=== PATIENT | female | born 1940 | race Caucasian/White ===

== ENCOUNTER → 2018-11-29 15:07 | Outpatient (ROUT) | payer MEDICARE, MEDICAID, SELFPAY ==
[2018-11-29 15:40] LABS: Hemoglobin A1C% w Est Avg Glu 5.2 % (4.0-6.0)
[2018-11-29 16:27] LABS: Vitamin B12 277 pg/mL (239-931)
== END ==
PROVIDERS: PCP Internal Medicine; Visit Provider Internal Medicine
DX: E53.8 Deficiency of other specified B group vitamins (principal); E11.9 Type 2 diabetes mellitus without complications
CPT/HCPCS: 82607; 83036

== ENCOUNTER → 2019-02-28 18:26 | Outpatient (ROUT) | payer MEDICARE, MEDICAID, SELFPAY ==
[2019-02-28 18:47] LABS: Alanine Aminotransferase 7 IU/L (<35); Albumin 3.6 g/dL (3.5-5.0); Albumin Globulin Ratio 1.6 (1.0-2.8); Alkaline Phosphatase 79 U/L (38-126); Aspartate Aminotransferase 15 IU/L (14-36); BUN Creatinine Ratio 21.7 (6-22); Bilirubin Total 0.4 mg/dL (0.2-1.3); Blood Urea Nitrogen 26 mg/dL (7-17); Calcium 9.1 mg/dL (8.4-10.2); Carbon Dioxide 20 mmol/L (22-32); Chloride 113 mmol/L (98-107); Cholesterol 114 mg/dL (140-199); Estimated Glomerular Filt Rate 43.6 mL/min (>60); Globulin 2.3 g/dL (1.7-4.1); Glucose 83 mg/dL (80-110); HDL Cholesterol 46 mg/dL (40-60); HEMOLYSIS < 15 (0-50); LDL Cholesterol Calculated 45 mg/dL (<100); Potassium 4.1 mmol/L (3.4-5.1); Sodium 143 mmol/L (137-145); Total Protein 5.9 g/dL (6.3-8.2); Triglycerides 113 mg/dL (35-150)
[2019-02-28 18:50] LABS: Hemoglobin A1C% w Est Avg Glu 4.7 % (4.0-6.0)
[2019-02-28 19:03] LABS: Vitamin D 25 Hydroxy (D3) 22.2 ng/mL (30.0-100.0)
[2019-02-28 19:36] LABS: Vitamin B12 > 1000 pg/mL (239-931)
== END ==
PROVIDERS: PCP Internal Medicine; Visit Provider Internal Medicine
DX: I10 Essential (primary) hypertension (principal); E55.9 Vitamin D deficiency, unspecified; E78.5 Hyperlipidemia, unspecified; E11.9 Type 2 diabetes mellitus without complications; E53.8 Deficiency of other specified B group vitamins
CPT/HCPCS: 80053; 80061; 82306; 82607; 83036

== ENCOUNTER → 2020-04-03 14:46 | Outpatient (ROUT) | payer MEDICARE, MEDICAID, SELFPAY ==
[2020-04-03 15:30] LABS: Add Manual Diff / Slide Review NO; Basophils Absolute Auto 100 /uL (0-100); Basophils Percent Auto 0.5 % (0-2); Eosinophils Absolute Auto 100 /uL (0-450); Eosinophils Percent Auto 0.6 % (2-4); Hematocrit 20.1 % (36-46); Lymphocytes Absolute Auto 600 /uL (1100-4500); Lymphocytes Percent Auto 5.8 % (25-40); Mean Corpuscular HGB Conc 32.4 % (30-36); Mean Corpuscular Hemoglobin 30.4 PG (26-34); Mean Corpuscular Volume 93.7 fL (80-100); Monocytes Absolute Auto 300 /uL (0-900); Monocytes Percent Auto 3.1 % (3-14); Neutrophils Absolute Auto 9300 /uL (1500-7000); Platelet Count 330 X10^3/uL (150-400); Red Blood Cell Count 2.14 X10^6/uL (4.0-5.2); Red Cell Distribution Width 16.8 % (11.6-14.8); White Blood Cell Count 10.3 X10^3/uL (4.5-11.0)
[2020-04-03 15:34] LABS: HEMOLYSIS < 15 (0-50); Iron 10 ug/dL (37-170)
[2020-04-03 15:36] LABS: Hemoglobin 6.5 g/dL (12.0-16.0)
[2020-04-03 15:37] LABS: BUN Creatinine Ratio 21.4 (6-22); Blood Urea Nitrogen 22 mg/dL (7-17); Calcium 8.9 mg/dL (8.4-10.2); Carbon Dioxide 22 mmol/L (22-32); Chloride 106 mmol/L (98-107); Estimated Glomerular Filt Rate 51.8 mL/min (>60); Glucose 88 mg/dL (80-110); HEMOLYSIS < 15 (0-50); Potassium 4.6 mmol/L (3.4-5.1); Sodium 134 mmol/L (137-145)
[2020-04-03 15:47] LABS: Percent Iron Saturation 3 % (15-50); Total Iron Binding Capacity 372 ug/dL (265-497); Transferrin 267 mg/dL (206-381)
[2020-04-03 16:15] LABS: Ferritin 15 ng/mL (11-264)
[2020-04-03 16:30] LABS: Vitamin B12 481 pg/mL (239-931)
== END ==
PROVIDERS: PCP Internal Medicine; Visit Provider Internal Medicine
DX: D50.0 Iron deficiency anemia secondary to blood loss (chronic) (principal); E53.8 Deficiency of other specified B group vitamins
CPT/HCPCS: 80048; 82607; 82728; 83540; 83550; 85025

== ENCOUNTER 2020-04-03 17:39 | Inpatient (IN) | payer MEDICARE, SELFPAY ==
[2020-04-03] VITALS (16 sets, daily range): BP systolic 115–159; BP diastolic 56–79; PULSE 67–78; RESP 13–27; TEMP 36.1–37; O2SAT 93–99; BMI 20.4
--- NOTE | 2020-04-03 18:00 | ED_ITS ---
HPI - GI Bleed General Chief complaint: GI Bleed Stated complaint: GI Bleed Time Seen by Provider: 04/03/20 17:59 Source: EMS Mode of arrival: EMS Limitations: no limitations History of Present Illness HPI Narrative: 80-year-old female daily smoker with history of ulcers presents by EMS for evaluation of increased weakness and abnormal labs. She had recently been admitted at an outside facility and found to be anemic, she had an EGD which noted bleeding ulcers. She was discharged on some new medications and en couraged to follow up. She had outpatient labs which noted a hemoglobin in the 6 is and was encouraged to return to the emergency department. She denies any nausea or vomiting and has never had any bright red emesis. She denies any obvious dark and tarry stool. She states she is increasingly fatigued and short of breath with minimal exertion. She denies any pain. She denies the use of blood thinners or significant and said but does take aspirin. MD complaint: melena Onset (ago): day(s) Severity: mild Relieving factors: none Exacerbating factors: none Context: history of GI bleed Associated symptoms: shortness of breath and weakness Treatments Prior to Arrival: none Related Data Home Medications Medication Instructions Recorded Confirmed Spiriva with HandiHaler 18 mcg INHALATION 0600 #0 09/08/15 04/03/20 acetaminophen 325 mg PO Q6HR PRN 04/03/20 04/03/20 alprazolam 0.125 - 0.25 mg PO DAILY 04/03/20 04/03/20 atorvastatin 80 mg PO DAILY 04/03/20 04/03/20 [id number]-[id number]-[id number] 1 tab PO 2XW MDD 2 04/03/20 04/03/20 [Fioricet] chlorthalidone 25 mg PO DAILY 04/03/20 04/03/20 dexlansoprazole [Dexilant] 60 mg PO BID 04/03/20 04/03/20 escitalopram oxalate 20 mg PO DAILY 04/03/20 04/03/20 fluticasone propionate [Flovent 1 puff INHALATION BID 04/03/20 04/03/20 HFA] gabapentin 300 mg PO TID 04/03/20 04/03/20 hydralazine 25 mg PO TID 04/03/20 04/03/20 hydrocodone-acetaminophen 1 tab PO Q6H PRN 04/03/20 04/03/20 ipratropium-albuterol [DuoNeb] 3 ml INHALATION QID 04/03/20 04/03/20 lisinopril 20 mg PO DAILY 04/03/20 04/03/20 metoclopramide HCl 10 mg PO ACHS 04/03/20 04/03/20 metoprolol succinate 100 mg PO DAILY 04/03/20 04/03/20 nitroglycerin 0.4 mg SUBLINGUAL Q7FDAT4 PRN 04/03/20 04/03/20 ondansetron 4 mg PO TID PRN 04/03/20 04/03/20 polyethylene glycol 3350 17 g PO DAILY PRN 04/03/20 04/03/20 sennosides [senna] 8.6 mg PO BEDTIME PRN 04/03/20 04/03/20 sucralfate 1 g PO BID 04/03/20 04/03/20 vitamin B complex [B 1 tab PO DAILY 04/03/20 04/03/20 Complex-Vitamin B12] Previous Rx's Medication Instructions Recorded Dexilant 60 mg PO QDAY #30 cap 09/08/15 amlodipine [Norvasc] 5 mg PO QDAY #30 tab 09/09/15 Allergies Allergy/AdvReac Type Severity Reaction Status Date / Time influenza virus vaccine, Allergy Unknown BREAKS OUT Unverified 04/03/20 17:48 specific [influenza virus vacc,specific] Penicillins Allergy Unknown SWELLING/BR Unverified 04/03/20 17:48 EAKOUT diazepam AdvReac Unknown MAKES ME Unverified 04/03/20 17:48 NERVOUS Review of Systems Constitutional Constitutional: Denies chills, Denies fatigue, Denies fever(s), Denies frequent falls, Denies lethargy and Reports weakness Eyes Eyes: Denies change in vision, Denies eye discharge, Denies irritation and Denies loss of vision ENT Ears, Nose, Mouth, and Throat: Denies change in voice, Denies dizziness, Denies neck pain, Denies sore throat and Denies throat swelling Cardiovascular Cardiovascular: Denies chest pain, Denies irregular heart rhythm, Denies lightheadedness, Denies palpitations, Denies dyspnea, Denies dyspnea on exertion and Denies orthopnea Respiratory Respiratory: Denies cough, Denies dyspnea, Denies dyspnea on exertion and Denies wheezing Gastrointestinal Gastrointestinal: Denies abdominal pain, Reports melena, Denies change in bowel habits, Denies diarrhea, Denies nausea and Denies vomiting Musculoskeletal Musculoskeletal: Denies neck pain and Denies numbness Integumentary/Breasts Skin/Breast: Denies pruritus, Denies erythema, Denies rash and Denies wounds Neurologic Neurologic: Denies behavioral changes, Denies confusion, Denies dizziness, Denies frequent falls, Denies loss of vision, Denies numbness and Reports weakness Psychiatric Psychiatric: Denies anxiety, Denies behavioral changes, Denies confusion, Denies depression, Denies homicidal ideation and Denies suicidal ideation Endocrine Endocrine: Denies fatigue, Denies flushing and Denies palpitations Hematologic/Lymphatic Hematologic/Lymphatic: Denies easy bruising Allergic/Immunologic Allergic/Immunologic: Denies urticaria, Denies throat swelling and Denies wheezing Patient History Medical History ADD (attention deficit disorder) Anxiety and depression COPD (chronic obstructive pulmonary disease) CVA (cerebral vascular accident) Hyperlipidemia Hypertension Myocardial infarction Neoplasm of rib NSAID-induced gastric ulcer Osteoarthritis Spinal stenosis at L4-L5 level Surgical History History of angioplasty History of hip surgery Social History household members: family Smoking Status: Current every day smoker alcohol intake: never Smoking Status: Current every day smoker Exam Narrative Exam Narrative: GENERAL: [80] year old patient appears stated age. Well- nourished, well-developed patient, in mild distress. HEAD: Atraumatic. Normocephalic. EYES: Pale conjunctiva Pupils equal round and reactive. Extraocular motions intact. No scleral icterus. No injection or drainage. ENT: Nose without bleeding, purulent drainage. Throat without erythema, tonsillar hypertrophy or exudate. Airway patent. NECK: Trachea midline. Non tender CARDIOVASCULAR: Regular rate and rhythm without murmurs, gallops, or rubs. RESPIRATORY: Clear to auscultation. Breath sounds equal bilaterally. No wheezes, rales, or rhonchi. GASTROINTESTINAL: Abdomen soft, non-tender, nondistended. RECTAL: dark tarry stool, Heme + EXTREMITIES: No edema or joint tenderness. BACK: Nontender without deformity or crepitance. No flank tenderness. NEURO: AOx3. SKIN: No rash or erythema of visible areas Initial Vital Signs Initial Vital Signs: Vital Signs Temperature 97 F L 04/03/20 17:44 Pulse Rate 78 04/03/20 17:44 Respiratory Rate 16 04/03/20 17:44 Blood Pressure 150/68 H 04/03/20 17:44 Pulse Oximetry 97 04/03/20 17:44 Course Orders Ordered: ED Orders 04/03/20 17:45 Complete Blood Count AUTO DIFF Stat Comprehensive Metabolic Panel Stat Packed Cells Stat Partial Thromboplastin Time Stat Prothrombin Time INR Stat Type and Screen Stat 04/03/20 18:01 EKG-12 Lead Stat 04/03/20 18:30 COVID19 Stat Acetaminophen (Acetaminophen 325 Mg Tablet) 975 mg PO Q8H PRN PRN Reason: Fever/Mild Pain (1-3) Albuterol (Albuterol Hfa Mdi 60 Puff/8 Gm Inhaler) 2 puff INH RTQ4HR PRN PRN Reason: Shortness Of Breath Or Wheezing Albuterol/Ipratropium (Albuterol/Ipratropium 3 Ml Ampul) 3 ml INH QID PRN PRN Reason: Shortness Of Breath Or Wheezing Atorvastatin Calcium (Atorvastatin 20 Mg Tablet) 80 mg PO DAILY ON LICENSE OF [facility] Chlorthalidone (Chlorthalidone 25 Mg Tablet) 25 mg PO DAILY ON LICENSE OF [facility] Escitalopram Oxalate (Escitalopram 10 Mg Tablet) 20 mg PO DAILY ON LICENSE OF [facility] Gabapentin (Gabapentin 300 Mg Capsule) 300 mg PO TID ON LICENSE OF [facility] Last Admin: 04/03/20 22:46 Dose: 300 mg Documented by: BALJIT Hydralazine HCl (Hydralazine 25 Mg Tablet) 25 mg PO TID ON LICENSE OF [facility] Last Admin: 04/03/20 22:47 Dose: 25 mg Documented by: BALJIT Sodium Chloride (Normal Saline 0.9%) 1,000 mls @ 50 mls/hr IV CONT ON LICENSE OF [facility] Lisinopril (Lisinopril 20 Mg Tablet) 20 mg PO DAILY ON LICENSE OF [facility] Melatonin (Melatonin 3 Mg Tablet) 6 mg PO BEDTIME PRN PRN Reason: Sleep Last Admin: 04/04/20 00:18 Dose: 6 mg Documented by: LILLIAM Metoprolol Succinate (Metoprolol Er 50 Mg Tablet) 100 mg PO DAILY ON LICENSE OF [facility] Naloxone HCl (Naloxone 0.4 Mg/Ml Vial) 0.2 mg IV Q2MIN PRN PRN Reason: Opiate Reversal Nitroglycerin (Nitroglycerin 0.4 Mg Sl Tab) 0.4 mg SL [id number] PRN PRN Reason: Chest Pain Ondansetron HCl (Ondansetron 4 Mg/2 Ml Inj) 4 mg IV Q6HR ON LICENSE OF [facility] Last Admin: 04/04/20 00:18 Dose: 4 mg Documented by: LILLIAM Oxycodone HCl (Oxycodone Ir 10 Mg Tablet) 10 mg PO Q4HR PRN PRN Reason: Pain, Severe (7-10) Last Admin: 04/04/20 00:18 Dose: 10 mg Documented by: LILLIAM Oxycodone HCl (Oxycodone Ir 5 Mg Tablet) 5 mg PO Q4HR PRN PRN Reason: Pain, Moderate (4-6) Pantoprazole Sodium (Pantoprazole 40 Mg Vial) 40 mg IV BID ON LICENSE OF [facility] Tiotropium [place] (Tiotropium [place] 18 Mcg Inhaler) 18 mcg INH RTDAILY ON LICENSE OF [facility] Vitamin B Complex (Vitamin B Complex 1 Capsule) 1 cap PO DAILY ON LICENSE OF [facility] Discontinued Medications Metoclopramide HCl (Metoclopramide 10 Mg/2 Ml Inj) 10 mg IV NOW ONE Stop: 04/03/20 18:05 Last Admin: 04/03/20 18:10 Dose: 10 mg Documented by: JODIE Non-Formulary Medication (Vitamin B Complex [B Complex-Vitamin B12]) 1 tab PO DAILY ON LICENSE OF [facility] Oxycodone HCl (Oxycodone Ir 5 Mg Tablet) 5 mg PO Q6HR PRN PRN Reason: Pain, Moderate (4-6) Last Admin: 04/03/20 20:19 Dose: 5 mg Documented by: BALJIT Pantoprazole Sodium (Pantoprazole 40 Mg Vial) 40 mg IV NOW ONE Stop: 04/03/20 18:05 Last Admin: 04/03/20 18:11 Dose: 40 mg Documented by: JODIE Prednisone (Prednisone 5 Mg Tablet) 10 mg PO DAILY ON LICENSE OF [facility] Consultations Consultation #1: Gen. Surg consulted, requests patient be NPO after midnight, admit to medicine Consultation #2: hospitalist happy to accept Vital Signs Vital signs: Vital Signs - 8 hr 04/03/20 17:44 04/03/20 17:47 04/03/20 18:00 Temperature 97 F L Pulse Rate 78 74 67 Respiratory Rate 16 20 14 Blood Pressure 150/68 H 137/63 Pulse Oximetry 97 98 98 04/03/20 18:30 04/03/20 18:31 04/03/20 19:00 Temperature Pulse Rate 78 78 72 Respiratory Rate 13 Blood Pressure 115/57 L 151/67 H Pulse Oximetry 97 99 97 MDM - GI Bleed Lab Data Result diagrams: 04/03/20 17:45 04/03/20 17:45 Labs: Lab Results 04/03/20 04/03/20 04/03/20 Range/Units 17:45 17:45 17:45 WBC 7.3 (4.5-11.0) X10^3/uL RBC 2.06 L (4.0-5.2) X10^6/uL Hgb 6.3 L* (12.0-16.0) g/dL Hct 19.3 L* (36-46) % MCV 93.7 (80-100) fL MCH 30.4 (26-34) PG MCHC 32.4 (30-36) % RDW 16.9 H (11.6-14.8) % Plt Count 329 (150-400) X10^3/uL Neut % (Auto) 79.5 H (50-75) % Lymph % (Auto) 13.8 L (25-40) % Wilkin % (Auto) 4.4 (3-14) % Eos % (Auto) 1.8 L (2-4) % Baso % (Auto) 0.5 (0-2) % Neut # (Auto) 5800 (5693-9506) /uL Lymph # (Auto) 1000 L (0110-8832) /uL Wilkin # (Auto) 300 (0-900) /uL Eos # (Auto) 100 (0-450) /uL Baso # (Auto) 0 (0-100) /uL PT 10.2 (10.1-12.7) SECONDS INR 0.9 (0.9-1.3) APTT 29 (26.4-36.2) SECONDS Sodium 137 (137-145) mmol/L Potassium 4.3 (3.4-5.1) mmol/L Chloride 112 H (98-107) mmol/L Carbon Dioxide 22 (22-32) mmol/L BUN 22 H (7-17) mg/dL Creatinine 1.07 H (0.52-1.04) mg/dL Estimated GFR 49.6 L (>60) mL/min BUN/Creatinine Ratio 20.6 (6-22) Glucose 94 (80-110) mg/dL Calcium 8.8 (8.4-10.2) mg/dL Magnesium (1.6-2.3) mg/dL Total Bilirubin 0.1 L (0.2-1.3) mg/dL AST 16 (14-36) IU/L ALT 8 (<35) IU/L Alkaline Phosphatase 77 (38-126) U/L Total Creatine Kinase (30-135) U/L CK-MB (CK-2) CK-MB (CK-2) Rel Index Troponin I (0.01-0.034) ng/mL Total Protein 5.6 L (6.3-8.2) g/dL Albumin 3.3 L (3.5-5.0) g/dL Globulin 2.3 (1.7-4.1) g/dL Albumin/Globulin Ratio 1.4 (1.0-2.8) SARS-CoV-2 (PCR) (Negative) Blood Type Antibody Screen Crossmatch 04/03/20 04/03/20 04/03/20 Range/Units 17:45 18:04 18:04 WBC (4.5-11.0) X10^3/uL RBC (4.0-5.2) X10^6/uL Hgb (12.0-16.0) g/dL Hct (36-46) % MCV (80-100) fL MCH (26-34) PG MCHC (30-36) % RDW (11.6-14.8) % Plt Count (150-400) X10^3/uL Neut % (Auto) (50-75) % Lymph % (Auto) (25-40) % Wilkin % (Auto) (3-14) % Eos % (Auto) (2-4) % Baso % (Auto) (0-2) % Neut # (Auto) (9826-3170) /uL Lymph # (Auto) (7300-5975) /uL Wilkin # (Auto) (0-900) /uL Eos # (Auto) (0-450) /uL Baso # (Auto) (0-100) /uL PT (10.1-12.7) SECONDS INR (0.9-1.3) APTT (26.4-36.2) SECONDS Sodium (137-145) mmol/L Potassium (3.4-5.1) mmol/L Chloride (98-107) mmol/L Carbon Dioxide (22-32) mmol/L BUN (7-17) mg/dL Creatinine (0.52-1.04) mg/dL Estimated GFR (>60) mL/min BUN/Creatinine Ratio (6-22) Glucose (80-110) mg/dL Calcium (8.4-10.2) mg/dL Magnesium 2.0 (1.6-2.3) mg/dL Total Bilirubin (0.2-1.3) mg/dL AST (14-36) IU/L ALT (<35) IU/L Alkaline Phosphatase (38-126) U/L Total Creatine Kinase 69 (30-135) U/L CK-MB (CK-2) TNP CK-MB (CK-2) Rel Index TNP Troponin I < 0.012 (0.01-0.034) ng/mL Total Protein (6.3-8.2) g/dL Albumin (3.5-5.0) g/dL Globulin (1.7-4.1) g/dL Albumin/Globulin Ratio (1.0-2.8) SARS-CoV-2 (PCR) (Negative) Blood Type O Positive Antibody Screen Negative Crossmatch See Detail 04/03/20 Range/Units 18:30 WBC (4.5-11.0) X10^3/uL RBC (4.0-5.2) X10^6/uL Hgb (12.0-16.0) g/dL Hct (36-46) % MCV (80-100) fL MCH (26-34) PG MCHC (30-36) % RDW (11.6-14.8) % Plt Count (150-400) X10^3/uL Neut % (Auto) (50-75) % Lymph % (Auto) (25-40) % Wilkin % (Auto) (3-14) % Eos % (Auto) (2-4) % Baso % (Auto) (0-2) % Neut # (Auto) (0090-0681) /uL Lymph # (Auto) (8446-1480) /uL Wilkin # (Auto) (0-900) /uL Eos # (Auto) (0-450) /uL Baso # (Auto) (0-100) /uL PT (10.1-12.7) SECONDS INR (0.9-1.3) APTT (26.4-36.2) SECONDS Sodium (137-145) mmol/L Potassium (3.4-5.1) mmol/L Chloride (98-107) mmol/L Carbon Dioxide (22-32) mmol/L BUN (7-17) mg/dL Creatinine (0.52-1.04) mg/dL Estimated GFR (>60) mL/min BUN/Creatinine Ratio (6-22) Glucose (80-110) mg/dL Calcium (8.4-10.2) mg/dL Magnesium (1.6-2.3) mg/dL Total Bilirubin (0.2-1.3) mg/dL AST (14-36) IU/L ALT (<35) IU/L Alkaline Phosphatase (38-126) U/L Total Creatine Kinase (30-135) U/L CK-MB (CK-2) CK-MB (CK-2) Rel Index Troponin I (0.01-0.034) ng/mL Total Protein (6.3-8.2) g/dL Albumin (3.5-5.0) g/dL Globulin (1.7-4.1) g/dL Albumin/Globulin Ratio (1.0-2.8) SARS-CoV-2 (PCR) Negative (Negative) Blood Type Antibody Screen Crossmatch Point of Care Testing Stool Occult Blood Positive Discharge Plan Departure Patient Disposition: Admitted as Observation Clinical Impression: Acute GI bleeding Anemia Qualifiers: Anemia type: unspecified type Qualified Code(s): D64.9 - Anemia, unspecified Admit Date/Time: 04/03/20 19:10 Admit Provider: John Lopez
[2020-04-03 18:09] LABS: INR 0.9 (0.9-1.3); Prothrombin Time 10.2 SECONDS (10.1-12.7)
[2020-04-03 18:10] LABS: Add Manual Diff / Slide Review NO; Basophils Absolute Auto 0 /uL (0-100); Basophils Percent Auto 0.5 % (0-2); Eosinophils Absolute Auto 100 /uL (0-450); Eosinophils Percent Auto 1.8 % (2-4); Hemoglobin 6.3 g/dL (12.0-16.0); Lymphocytes Absolute Auto 1000 /uL (1100-4500); Lymphocytes Percent Auto 13.8 % (25-40); Mean Corpuscular HGB Conc 32.4 % (30-36); Mean Corpuscular Hemoglobin 30.4 PG (26-34); Mean Corpuscular Volume 93.7 fL (80-100); Monocytes Absolute Auto 300 /uL (0-900); Monocytes Percent Auto 4.4 % (3-14); Neutrophils Absolute Auto 5800 /uL (1500-7000); Neutrophils Percent Auto 79.5 % (50-75); Platelet Count 329 X10^3/uL (150-400); Red Blood Cell Count 2.06 X10^6/uL (4.0-5.2); Red Cell Distribution Width 16.9 % (11.6-14.8); White Blood Cell Count 7.3 X10^3/uL (4.5-11.0)
[2020-04-03] MEDS: METOCLOPRAMIDE 10 MG/2 ML INJ IV (18:10)
[2020-04-03] MEDS: PANTOPRAZOLE 40 MG VIAL IV (18:11)
[2020-04-03 18:12] LABS: Hematocrit 19.3 % (36-46); PTT Partial Thromboplastin Tim 29 SECONDS (26.4-36.2)
[2020-04-03 18:14] LABS: Alanine Aminotransferase 8 IU/L (<35); Albumin 3.3 g/dL (3.5-5.0); Albumin Globulin Ratio 1.4 (1.0-2.8); Alkaline Phosphatase 77 U/L (38-126); Aspartate Aminotransferase 16 IU/L (14-36); BUN Creatinine Ratio 20.6 (6-22); Bilirubin Total 0.1 mg/dL (0.2-1.3); Blood Urea Nitrogen 22 mg/dL (7-17); Calcium 8.8 mg/dL (8.4-10.2); Carbon Dioxide 22 mmol/L (22-32); Chloride 112 mmol/L (98-107); Estimated Glomerular Filt Rate 49.6 mL/min (>60); Globulin 2.3 g/dL (1.7-4.1); Glucose 94 mg/dL (80-110); HEMOLYSIS < 15 (0-50); Potassium 4.3 mmol/L (3.4-5.1); Sodium 137 mmol/L (137-145); Total Protein 5.6 g/dL (6.3-8.2)
[2020-04-03 18:57] LABS: COVID19 -Nasal RAPID Negative (Negative)
--- NOTE | 2020-04-03 19:28 | P.HP_ITS ---
History of Present Illness History of Present Illness Date Patient Seen: 04/03/20 Time Patient Seen: 20:08 Chief complaint: GI Bleed Narrative: Ms. Arlyn Rangel is a 80-year-old female with a past medical history significant for hypertension, hyperlipidemia, history of myocardial infarction (see 1982, S/P angioplasty), CVA, COPD, L4-5 spinal stenosis, anxiety and depression who presents to the ER via EMS with weakness and lightheadedness. The patient was admitted at [facility] following a syncopal episode where she was found to be anemic with a GI bleed and melena. She was transfused 2 units of blood and underwent endoscopy and treated for bleeding ulcer. The patient reports she was found to have an NSAID induced gastric ulcer. The patient was discharged 1 week ago today and on follow-up labs was found disc continued to be anemic with a hemoglobin of 6 and hematocrit of 20. Patient continues to endorse nausea with occasional vomiting without hematemesis. She continues to pass melanotic stools since the onset of her symptoms approximately 2 weeks ago. The patient has previously experience cramping abdominal pain but none at this time. The patient denies complaints of recent flu or cold symptoms, fevers or chills and no known COVID-19 exposures. She does complain of a left occipital headache, she reports no lateralizing symptoms numbness or tingling, no changes in gait, balance or visual changes. She reports no complaints of chest pain with a history of previous heart attack and has had no palpitations. The patient denies shortness of breath however continues to smoke daily and reports occasional wheezing using Spiriva and albuterol as home medications. She has a frequent cough which she relates to sinus drainage in the back of throat. Upon arrival to the ER the patient has a temperature 97.0?, heart rate 78, blood pressure 150/68, respirations 16 saturating 97% on room air. No imaging was obtained, EKG reveals sinus rhythm at a rate of 72 without ectopy, no block, ST or T-wave changes or pathological Q-waves. On laboratory analysis the patient has white count 7.3, hemoglobin of 6.3, hematocrit of 19.3 and platelets of 329. Her PT is 10.9 with an INR 0.9 and a PTT of 29. Her electrolytes are within normal range however chloride is elevated at 112. She has a BUN of 22 and a creatinine of 1.07. Her EGFR is 49.6. Her nonfasting glucose is 94 and her liver functions are all within normal range. Her COVID-[address] Benedict general surgery is contacted through the ER and agrees to consult with plans to perform endoscopy tomorrow. The patient received Protonix 40 mg IV in the ER. She is admitted to the hospitalist service for recurrent versus persistent GI bleeding. Patient History Medical History (Updated 04/03/20 @ 22:00 by RAJINDER Bai) ADD (attention deficit disorder) Anxiety and depression COPD (chronic obstructive pulmonary disease) CVA (cerebral vascular accident) Hyperlipidemia Hypertension Myocardial infarction Neoplasm of rib NSAID-induced gastric ulcer Osteoarthritis Spinal stenosis at L4-L5 level Surgical History (Updated 04/03/20 @ 19:31 by RAJINDER Bai) History of angioplasty History of hip surgery Family & Social History Safety & Behavioral: Feels Safe in Current Yes Environment Been Physically Hurt or No Threatened By a Person Tobacco & Substance use: Smoking Status Current every day smoker Meds Home Medications and Allergies Home Medications Medication Instructions Recorded Confirmed Type Dexilant 60 mg PO QDAY #30 cap 09/08/15 04/03/20 Rx Spiriva with HandiHaler 18 mcg INHALATION 0600 #0 09/08/15 04/03/20 History amlodipine [Norvasc] 5 mg PO QDAY #30 tab 09/09/15 04/03/20 Rx acetaminophen 325 mg PO Q6HR PRN 04/03/20 04/03/20 History alprazolam 0.125 - 0.25 mg PO DAILY 04/03/20 04/03/20 History atorvastatin 80 mg PO DAILY 04/03/20 04/03/20 History mhhpjttgje-odyfvlrrrbcyi-yxcl 1 tab PO 2XW MDD 2 04/03/20 04/03/20 History [Fioricet] chlorthalidone 25 mg PO DAILY 04/03/20 04/03/20 History dexlansoprazole [Dexilant] 60 mg PO BID 04/03/20 04/03/20 History escitalopram oxalate 20 mg PO DAILY 04/03/20 04/03/20 History fluticasone propionate [Flovent 1 puff INHALATION BID 04/03/20 04/03/20 History HFA] gabapentin 300 mg PO TID 04/03/20 04/03/20 History hydralazine 25 mg PO TID 04/03/20 04/03/20 History hydrocodone-acetaminophen 1 tab PO Q6H PRN 04/03/20 04/03/20 History ipratropium-albuterol [DuoNeb] 3 ml INHALATION QID 04/03/20 04/03/20 History lisinopril 20 mg PO DAILY 04/03/20 04/03/20 History metoclopramide HCl 10 mg PO ACHS 04/03/20 04/03/20 History metoprolol succinate 100 mg PO DAILY 04/03/20 04/03/20 History nitroglycerin 0.4 mg SUBLINGUAL [id number] PRN 04/03/20 04/03/20 History ondansetron 4 mg PO TID PRN 04/03/20 04/03/20 History polyethylene glycol 3350 17 g PO DAILY PRN 04/03/20 04/03/20 History sennosides [senna] 8.6 mg PO BEDTIME PRN 04/03/20 04/03/20 History sucralfate 1 g PO BID 04/03/20 04/03/20 History vitamin B complex [B 1 tab PO DAILY 04/03/20 04/03/20 History Complex-Vitamin B12] Allergies Allergy/AdvReac Type Severity Reaction Status Date / Time influenza virus vaccine, Allergy Unknown BREAKS OUT Unverified 04/03/20 17:48 specific [influenza virus vacc,specific] Penicillins Allergy Unknown SWELLING/BR Unverified 04/03/20 17:48 EAKOUT diazepam AdvReac Unknown MAKES ME Unverified 04/03/20 17:48 NERVOUS Review of Systems Review of Systems ROS: Yes All systems reviewed with the patient and are negative except as otherwise documented Exam Vital Signs (past 8 hours): - 04/03/20 17:44 04/03/20 17:47 04/03/20 18:00 Temperature 97 F L Pulse Rate 78 74 67 Respiratory Rate 16 20 14 Blood Pressure 150/68 H 137/63 Pulse Oximetry 97 98 98 04/03/20 18:30 04/03/20 18:31 04/03/20 19:00 Temperature Pulse Rate 78 78 72 Respiratory Rate 13 Blood Pressure 115/57 L 151/67 H Pulse Oximetry 97 99 97 Oxygen Delivery Method Room Air Narrative Exam Narrative: GENERAL APPEARANCE: well developed, frail appearing elderly female who is briskly responsive and in no acute distress. HEENT: Normocephalic, PERRLA, sclera is anicteric, EOMs intact without nystagmus, no sinus tenderness to percussion, no rhinorrhea, mucous membranes are moist and pale without lesions or exudate. NECK/THYROID: neck supple, no JVD, no carotid bruit, no thyromegaly, trachea midline. LYMPH NODES: no cervical or supraclavicular lymphadenopathy. SKIN: [place], warm and dry, no visible lesions, rashes, ulcerations or petechiae. HEART: regular rate and rhythm, S1-S2, 1/6 systolic murmur noted over right upper sternal border as well as left midsternal border, no rubs or gallops, 1+ dorsalis pedis pulses, no edema LUNGS: clear to auscultation bilaterally, no coarseness crackles or wheezing, moist cough present CHEST: Symmetrical movement, no accessory muscle use, good tidal volume. ABDOMEN: Soft, no distention, no epigastric or abdominal tenderness on deep palpation, no guarding or peritoneal signs, no organomegaly, active bowel tones. BACK: Normal curvature, nontender to palpation. EXTREMITIES: moves all extremities, strength is 5/5 and symmetrical, no defor mities or joint effusions no clubbing or cyanosis. NEUROLOGIC: AAO x4, no focal neurologic deficits, cranial nerves II-XII grossly intact, sensation intact to light touch, hearing grossly normal to speech. PSYCH: Good eye contact, linear thought process, cooperative, appropriate with stable behavior Objective Labs Result Diagrams: 04/03/20 17:45 04/03/20 17:45 Labs: Laboratory Results - last 24 hr 04/03/20 04/03/20 04/03/20 17:45 17:45 17:45 WBC 7.3 RBC 2.06 L Hgb 6.3 L* Hct 19.3 L* MCV 93.7 MCH 30.4 MCHC 32.4 RDW 16.9 H Plt Count 329 Neut % (Auto) 79.5 H Lymph % (Auto) 13.8 L [place] % (Auto) 4.4 Eos % (Auto) 1.8 L Baso % (Auto) 0.5 Neut # (Auto) 5800 Lymph # (Auto) 1000 L [place] # (Auto) 300 Eos # (Auto) 100 Baso # (Auto) 0 PT 10.2 INR 0.9 APTT 29 Sodium 137 Potassium 4.3 Chloride 112 H Carbon Dioxide 22 BUN 22 H Creatinine 1.07 H Estimated GFR 49.6 L BUN/Creatinine Ratio 20.6 Glucose 94 Calcium 8.8 Total Bilirubin 0.1 L AST 16 ALT 8 Alkaline Phosphatase 77 Total Protein 5.6 L Albumin 3.3 L Globulin 2.3 Albumin/Globulin Ratio 1.4 SARS-CoV-2 (PCR) Blood Type Antibody Screen Crossmatch 04/03/20 04/03/20 17:45 18:30 WBC RBC Hgb Hct MCV MCH MCHC RDW Plt Count Neut % (Auto) Lymph % (Auto) [place] % (Auto) Eos % (Auto) Baso % (Auto) Neut # (Auto) Lymph # (Auto) [place] # (Auto) Eos # (Auto) Baso # (Auto) PT INR APTT Sodium Potassium Chloride Carbon Dioxide BUN Creatinine Estimated GFR BUN/Creatinine Ratio Glucose Calcium Total Bilirubin AST ALT Alkaline Phosphatase Total Protein Albumin Globulin Albumin/Globulin Ratio SARS-CoV-2 (PCR) Negative Blood Type O Positive Antibody Screen Negative Crossmatch See Detail Assessment & Plan Assessment & Plan narrative: This is a very pleasant 80-year-old female patient was brought to the hospital via EMS for weakness and lethargy with continuing melanotic stool since discharge from [facility] 1 week ago where she had been found to have GI bleed transfused 2 units of packed RBCs and underwent endoscopy with patient reporting diagnosis of NSAID induced ulcer. 1. Upper GI bleed, acute, present on admission, active. -continues melanotic stool since onset of symptoms precipitating syncope and admission to [facility] where she underwent EGD and was transfused 2 units of blood. -on follow-up labs the patient is found to be severely anemic and told she had a hemoglobin of 6 and hematocrit of 20. -initial labs reveal a hemoglobin of 6.3 and hematocrit of 19.3 with adequate platelets and no coagulopathy. Patient does not have history of alcohol abuse nor liver disease with all liver functions within normal range. -transfusion of 2 units of pack cells is ordered 1st unit started in the emergency department. Will recheck H&H 1 hour following completion of the 2nd unit. -ordered Protonix 40 mg IV twice daily, 1st dose administered in the emergency department -Dr. Benedict, general surgery, has been consulted with plans to take the patient for endoscopy in the morning. We appreciate his recommendations and treatment. -patient remain NPO 2. History coronary artery disease, chronic, stable -patient denies complaints of chest pain or palpitations. Patient has a past history of NH status post angioplasty. -12 lead EKG sinus rhythm at [address] T-wave changes or in pathologic Q-waves. -the patient has been on aspirin 81 mg daily which is held due to current bleeding, will continue home regimen of nitroglycerin 0.4 mg sublingual as needed for chest pain. 3. History of CVA, residual left facial droop, chronic, stable -patient has persistent residual left facial droop. -patient complains of left occipital headache but denies complaints of visual changes, vertigo, ataxia, numbness tingling or lateralizing symptoms. 4. COPD, chronic, stable -patient continues to smoke 4 cigarettes per day. She denies shortness of breath and endorses intermittent wheezing. -she reports using Spiriva and albuterol on as-needed basis at home. -requested respiratory therapy to consult evaluate and treat. -ordered Spiriva 18 mcg daily and albuterol MDI 2 puffs every 4 hours as needed for shortness of breath or wheezing. -the patient previously been on a tapering course prednisone several months ago but is no longer taking the medication. 5. Hypertension, chronic, stable -initial blood pressure upon arrival to the ER was 100 150/68. Patient recently had decrease in lisinopril dose from 20 mg twice daily to once daily. -will continue home regimen of lisinopril 20 mg daily, metoprolol succinate 100 mg daily and chlorthalidone 25 mg daily. -will track and trend blood pressures. 6. Hyperlipidemia, chronic, stable -will continue home regimen of atorvastatin 80 mg daily. VTE prophylaxis: Bilateral SCDs, chemical prophylaxis contraindicated IV fluid: Normal saline 50 cc/hour, transfuse 2 units of blood. Diet: NPO Code status: Patient states wish to be full code and designates her daughter to be her surrogate decision maker. The patient is admitted to the hospital due to the severity of her symptoms requiring requiring further evaluation monitoring and immediate interventions to prevent further complications and adverse events. The patient is admitted as observation with expected length of stay to be less than 2 midnights. COVID-19 COVID-19 status: Negative Result date/Date tested (Pos, Neg/Pending): 04/03/20 Scores GCS Derrick coma scale eye opening: Spontaneous [place]rick coma scale verbal response: Orientated [place] coma scale motor response: Obey commands Derrick coma scale total score: 15
[2020-04-03 20:07] LABS: Creatine Kinase 69 U/L (30-135)
[2020-04-03] MEDS: OXYCODONE IR 5 MG TABLET PO (20:19)
[2020-04-03 20:20] LABS: Troponin I < 0.012 ng/mL (0.01-0.034)
[2020-04-03] MEDS: GABAPENTIN 300 MG CAPSULE PO (22:46)
[2020-04-03] MEDS: HYDRALAZINE 25 MG TABLET PO (22:47)
[2020-04-04] VITALS (28 sets, daily range): BP systolic 108–181; BP diastolic 53–94; PULSE 55–70; RESP 12–21; TEMP 36.2–37.4; O2SAT 90–98; BMI 20.2
--- NOTE | 2020-04-04 | PATH_ITS ---
[facility] Accession Number: [id number] . 01 Material submitted: . PART A: duodenum - DUODENUM PART B: stomach - STOMACH PART C: esophagus - ESOPHAGUS . 01 Clinical history: . GI BLEED . 02 Diagnosis: A. Duodenum, Biopsy: Duodenal mucosa with no diagnostic abnormality. Negative for active inflammation, features of sprue, dysplasia, or malignancy. . B. Stomach, Biopsy: Gastric antral mucosa with reactive gastropathy and mild chronic inflammation. Negative for Helicobacter organisms by immunohistochemistry. Negative for intestinal metaplasia. Negative for dysplasia and malignancy. . C. Esophagus, Biopsy: Squamocolumnar junctional mucosa with no diagnostic abnormality. Negative for intestinal metaplasia by alcian blue stain. Negative for dysplasia and malignancy. . MR 04/10/2020 1606 Local . 02 Electronically signed: . Rachael Bowers MD, Pathologist NPI- [id number] . 01 Gross description: . Part A: DUODENUM: Received in formalin are 2 fragment(s) of hernández, soft tissue measuring 0.2 x 0.2 x 0.2 cm to 0.3 x 0.3 x 0.2 cm submitted entirely in 1 cassette(s) Part B: STOMACH: Received in formalin are 3 fragment(s) of hernández, soft tissue measuring 0.1 x 0.1 x 0.1 cm to 0.3 x 0.2 x 0.2 cm submitted entirely in 1 cassette(s) Part C: ESOPHAGUS: Received in formalin is 1 fragment(s) of hernández, soft tissue measuring 0.2 x 0.2 x 0.1 cm submitted entirely in 1 cassette(s) /SKIP 04/08/20202031 Local . 02 Microscopic: . B. An immunohistochemical stain was performed to evaluate for Helicobacter organisms and is negative. The control stain showed appropriate reactivity. . * This test was developed and its performance characteristics determined by [facility]. It has not been cleared or approved by the U.S. Food and Drug Administration. The FDA has determined that such clearance or approval is not necessary. This test is used for clinical purposes. It should not be regarded as investigational or for research. . 02 Pathologist provided ICD-10: K92.2 . 02 CPT . 377657, 026983, 291311, [id number], 305103 Performed at: 01 [facility] [address] [address], [place], [place] [id number] MD Rolando Miller MD Phone: [phone] Performed at: 02 [facility] [address] [place] [id number] MD Shona Hernandez MD Phone: [phone]
[2020-04-04] MEDS: MELATONIN 3 MG TABLET 6 MG PO (00:18)
[2020-04-04] MEDS: OXYCODONE IR 10 MG TABLET PO ×2 (00:18→15:30)
[2020-04-04] MEDS: ONDANSETRON 4 MG/2 ML INJ IV ×4 (00:18→17:56)
[2020-04-04] MEDS: SODIUM CHLORIDE 0.9% 1,000 ML 50 ML IV ×2 (01:45→11:19)
[2020-04-04 03:16] LABS: Add Manual Diff / Slide Review NO; Basophils Absolute Auto 0 /uL (0-100); Basophils Percent Auto 0.5 % (0-2); Eosinophils Absolute Auto 200 /uL (0-450); Hemoglobin 8.3 g/dL (12.0-16.0); Lymphocytes Absolute Auto 1200 /uL (1100-4500); Lymphocytes Percent Auto 22.8 % (25-40); Mean Corpuscular HGB Conc 32.2 % (30-36); Mean Corpuscular Hemoglobin 29.6 PG (26-34); Mean Corpuscular Volume 92.1 fL (80-100); Monocytes Absolute Auto 400 /uL (0-900); Monocytes Percent Auto 6.7 % (3-14); Neutrophils Absolute Auto 3600 /uL (1500-7000); Platelet Count 257 X10^3/uL (150-400); Red Cell Distribution Width 16.7 % (11.6-14.8); White Blood Cell Count 5.4 X10^3/uL (4.5-11.0)
[2020-04-04 03:18] LABS: Hematocrit 25.8 % (36-46)
[2020-04-04 03:25] LABS: BUN Creatinine Ratio 21.1 (6-22); Blood Urea Nitrogen 20 mg/dL (7-17); Calcium 8.6 mg/dL (8.4-10.2); Carbon Dioxide 24 mmol/L (22-32); Chloride 111 mmol/L (98-107); Estimated Glomerular Filt Rate 56.9 mL/min (>60); Glucose 82 mg/dL (80-110); HEMOLYSIS < 15 (0-50); Potassium 4.3 mmol/L (3.4-5.1); Sodium 136 mmol/L (137-145)
--- NOTE | 2020-04-04 05:33 | PC.NURSE ---
Pt having 7/10 head pain at start of shift. Unresolved with previous oxycodone dose. John CALVILLO increased oxycodone dose. Pt resolved with 10mg oxycodone. Pt desatting to 87% whenever falling asleep. Started on 2L O2 and o2 sats now stable at 96%. Pt resting without complaints now
[2020-04-04 05:40] LABS: RBC Urine None Seen (0-5/HPF)
[2020-04-04 06:03] LABS: Appearance Urine UA CLEAR; Bilirubin Urine UA NEGATIVE (NEGATIVE); Color Urine UA YELLOW; Glucose Urine UA NEGATIVE (Negative); Ketones Urine UA NEGATIVE (NEGATIVE); Leukocyte Esterase Urine UA NEGATIVE (NEGATIVE); Nitrite Urine UA NEGATIVE (Negative); Occult Blood Urine UA NEGATIVE (Negative); Protein Urine UA NEGATIVE (Negative); Urobilinogen Urine UA 0.2 E.U./dL (0.2)
[2020-04-04 06:49] LABS: Bacteria Urine Occasional (0-1); Culture Indicated Urine Cult Not Indicated; Squamous Epithelial Cell Urine 1-5 /HPF (0-5/HPF); WBC Urine 0-1/HPF (0-5/HPF)
[2020-04-04] MEDS: TIOTROPIUM BROMIDE 18 MCG INHALER INH (07:28)
--- NOTE | 2020-04-04 08:56 | P.CONS_ITS ---
History of Present Illness Consult details Date Patient Seen: 04/04/20 Time Patient Seen: 08:56 Chief complaint: GI Bleed Reason for consult: GI bleed Narrative: The patient is a woman who has been having black bowel movements for several weeks. She was admitted would be Hospital and found to be anemic in on EGD was found have gastric ulcers. She was discharged on sucralfate and had been taking Dexilant at home for years for reflux disease, which she continued. She continued to have black bowel movements after discharge and return to the emergency room when she was found to be profoundly anemic and was admitted for evaluation and treatment. She had no pain in her abdomen over the past several weeks. She has never had ulcer disease. Of note, the patient has had colon cancer and resection with an ostomy followed by closure. This occurred in the s. Her last colonoscopy was years ago. Meds Home Medications and Allergies Home Medications Medication Instructions Recorded Confirmed Type Dexilant 60 mg PO QDAY #30 cap 09/08/15 04/03/20 Rx Spiriva with HandiHaler 18 mcg INHALATION 0600 #0 09/08/15 04/03/20 History amlodipine [Norvasc] 5 mg PO QDAY #30 tab 09/09/15 04/03/20 Rx acetaminophen 325 mg PO Q6HR PRN 04/03/20 04/03/20 History alprazolam 0.125 - 0.25 mg PO DAILY 04/03/20 04/03/20 History atorvastatin 80 mg PO DAILY 04/03/20 04/03/20 History ggrybpgkrk-ktajudzaesjic-wgan 1 tab PO 2XW MDD 2 04/03/20 04/03/20 History [Fioricet] chlorthalidone 25 mg PO DAILY 04/03/20 04/03/20 History dexlansoprazole [Dexilant] 60 mg PO BID 04/03/20 04/03/20 History escitalopram oxalate 20 mg PO DAILY 04/03/20 04/03/20 History fluticasone propionate [Flovent 1 puff INHALATION BID 04/03/20 04/03/20 History HFA] gabapentin 300 mg PO TID 04/03/20 04/03/20 History hydralazine 25 mg PO TID 04/03/20 04/03/20 History hydrocodone-acetaminophen 1 tab PO Q6H PRN 04/03/20 04/03/20 History ipratropium-albuterol [DuoNeb] 3 ml INHALATION QID 04/03/20 04/03/20 History lisinopril 20 mg PO DAILY 04/03/20 04/03/20 History metoclopramide HCl 10 mg PO ACHS 04/03/20 04/03/20 History metoprolol succinate 100 mg PO DAILY 04/03/20 04/03/20 History nitroglycerin 0.4 mg SUBLINGUAL [id number] PRN 04/03/20 04/03/20 History ondansetron 4 mg PO TID PRN 04/03/20 04/03/20 History polyethylene glycol 3350 17 g PO DAILY PRN 04/03/20 04/03/20 History sennosides [senna] 8.6 mg PO BEDTIME PRN 04/03/20 04/03/20 History sucralfate 1 g PO BID 04/03/20 04/03/20 History vitamin B complex [B 1 tab PO DAILY 04/03/20 04/03/20 History Complex-Vitamin B12] Allergies Allergy/AdvReac Type Severity Reaction Status Date / Time influenza virus vaccine, Allergy Unknown BREAKS OUT Unverified 04/03/20 17:48 specific [influenza virus vacc,specific] Penicillins Allergy Unknown SWELLING/BR Unverified 04/03/20 17:48 EAKOUT diazepam AdvReac Unknown MAKES ME Unverified 04/03/20 17:48 NERVOUS Review of Systems Review of Systems Narrative: Patient denies chest pain. She has a known murmur. Patient denies cough or cold. Her breathing is sometimes labored she says. Patient denies any abdominal pain. No hematemesis. Patient denies seizures or blackouts. Exam Vital Signs (past 8 hours): - 04/04/20 01:43 04/04/20 04:44 04/04/20 07:29 Temperature 97.8 F 97.2 F L Pulse Rate 60 66 62 Respiratory Rate 14 18 16 Blood Pressure 117/53 L 128/56 L Pulse Oximetry 96 96 Oxygen Delivery Method Room Air Oxygen Flow Rate 2 Narrative Exam Narrative: Cooperative pleasant woman in no distress. Eyes are nonicteric. Conjunctiva are little pale. Lungs are clear to auscultation with an increased expiratory phase. No rales or rhonchi appreciated. Heart regular rate and rhythm. There is at least a 3/6 systolic murmur heard best at the base. Abdomen is mildly protuberant soft. Very lax abdominal wall. Very mild tenderness in examining the suprapubic area but the remainder of her abdomen is entirely benign. Scarring noted from her prior operations. No obvious hernias appreciated. Objective Labs Result Diagrams: 04/04/20 03:02 04/04/20 03:02 Labs: Laboratory Results - last 24 hr 04/03/20 04/03/20 04/03/20 17:45 17:45 17:45 WBC 7.3 RBC 2.06 L Hgb 6.3 L* Hct 19.3 L* MCV 93.7 MCH 30.4 MCHC 32.4 RDW 16.9 H Plt Count 329 Neut % (Auto) 79.5 H Lymph % (Auto) 13.8 L [place] % (Auto) 4.4 Eos % (Auto) 1.8 L Baso % (Auto) 0.5 Neut # (Auto) 5800 Lymph # (Auto) 1000 L [place] # (Auto) 300 Eos # (Auto) 100 Baso # (Auto) 0 PT 10.2 INR 0.9 APTT 29 Sodium 137 Potassium 4.3 Chloride 112 H Carbon Dioxide 22 BUN 22 H Creatinine 1.07 H Estimated GFR 49.6 L BUN/Creatinine Ratio 20.6 Glucose 94 Calcium 8.8 Magnesium Total Bilirubin 0.1 L AST 16 ALT 8 Alkaline Phosphatase 77 Total Creatine Kinase CK-MB (CK-2) CK-MB (CK-2) Rel Index Troponin I Total Protein 5.6 L Albumin 3.3 L Globulin 2.3 Albumin/Globulin Ratio 1.4 Urine Color Urine Appearance Urine pH Ur Specific [place] Urine Protein Urine Glucose (UA) Urine Ketones Urine Occult Blood Urine Nitrate Urine Bilirubin Urine Urobilinogen Ur Leukocyte Esterase Urine RBC Urine WBC Ur Squamous Epith Cells Urine Bacteria Ur Culture Indicated? SARS-CoV-2 (PCR) Blood Type Antibody Screen Crossmatch 04/03/20 04/03/20 04/03/20 17:45 18:04 18:04 WBC RBC Hgb Hct MCV MCH MCHC RDW Plt Count Neut % (Auto) Lymph % (Auto) [place] % (Auto) Eos % (Auto) Baso % (Auto) Neut # (Auto) Lymph # (Auto) [place] # (Auto) Eos # (Auto) Baso # (Auto) PT INR APTT Sodium Potassium Chloride Carbon Dioxide BUN Creatinine Estimated GFR BUN/Creatinine Ratio Glucose Calcium Magnesium 2.0 Total Bilirubin AST ALT Alkaline Phosphatase Total Creatine Kinase 69 CK-MB (CK-2) TNP CK-MB (CK-2) Rel Index TNP Troponin I < 0.012 Total Protein Albumin Globulin Albumin/Globulin Ratio Urine Color Urine Appearance Urine pH Ur Specific [place] Urine Protein Urine Glucose (UA) Urine Ketones Urine Occult Blood Urine Nitrate Urine Bilirubin Urine Urobilinogen Ur Leukocyte Esterase Urine RBC Urine WBC Ur Squamous Epith Cells Urine Bacteria Ur Culture Indicated? SARS-CoV-2 (PCR) Blood Type O Positive Antibody Screen Negative Crossmatch See Detail 04/03/20 04/04/20 04/04/20 18:30 03:02 03:02 WBC 5.4 RBC 2.80 L Hgb 8.3 L Hct 25.8 L MCV 92.1 MCH 29.6 MCHC 32.2 RDW 16.7 H Plt Count 257 Neut % (Auto) 67.0 Lymph % (Auto) 22.8 L [place] % (Auto) 6.7 Eos % (Auto) 3.0 Baso % (Auto) 0.5 Neut # (Auto) 3600 Lymph # (Auto) 1200 [place] # (Auto) 400 Eos # (Auto) 200 Baso # (Auto) 0 PT INR APTT Sodium 136 L Potassium 4.3 Chloride 111 H Carbon Dioxide 24 BUN 20 H Creatinine 0.95 Estimated GFR 56.9 L BUN/Creatinine Ratio 21.1 Glucose 82 Calcium 8.6 Magnesium Total Bilirubin AST ALT Alkaline Phosphatase Total Creatine Kinase CK-MB (CK-2) CK-MB (CK-2) Rel Index Troponin I Total Protein Albumin Globulin Albumin/Globulin Ratio Urine Color Urine Appearance Urine pH Ur Specific [place] Urine Protein Urine Glucose (UA) Urine Ketones Urine Occult Blood Urine Nitrate Urine Bilirubin Urine Urobilinogen Ur Leukocyte Esterase Urine RBC Urine WBC Ur Squamous Epith Cells Urine Bacteria Ur Culture Indicated? SARS-CoV-2 (PCR) Negative Blood Type Antibody Screen Crossmatch 04/04/20 04:30 WBC RBC Hgb Hct MCV MCH MCHC RDW Plt Count Neut % (Auto) Lymph % (Auto) [place] % (Auto) Eos % (Auto) Baso % (Auto) Neut # (Auto) Lymph # (Auto) [place] # (Auto) Eos # (Auto) Baso # (Auto) PT INR APTT Sodium Potassium Chloride Carbon Dioxide BUN Creatinine Estimated GFR BUN/Creatinine Ratio Glucose Calcium Magnesium Total Bilirubin AST ALT Alkaline Phosphatase Total Creatine Kinase CK-MB (CK-2) CK-MB (CK-2) Rel Index Troponin I Total Protein Albumin Globulin Albumin/Globulin Ratio Urine Color Yellow Urine Appearance Clear Urine pH 5.0 Ur Specific [place] 1.020 Urine Protein Negative Urine Glucose (UA) Negative Urine Ketones Negative Urine Occult Blood Negative Urine Nitrate Negative Urine Bilirubin Negative Urine Urobilinogen 0.2 Ur Leukocyte Esterase Negative Urine RBC None seen Urine WBC 0-1/hpf Ur Squamous Epith Cells 1-5 /hpf Urine Bacteria Occasional (0-1) Ur Culture Indicated? Cult not indicated SARS-CoV-2 (PCR) Blood Type Antibody Screen Crossmatch Assessment & Plan Assessment & Plan narrative: Patient is a woman with a recurrent upper GI bleed. Since up to 25% of ulcers will rebleed this is not that unusual. However and she may require intervention such as cauterization, clip application, or injection therapy. I have recommended an upper endoscopy under general anesthesia. I have talked to her about it. Risks of bleeding and perforation discussed. She understands she will be put to sleep for this and she was quite glad to hear it. All questions were answered. She also understands that Dr. Nielson will probably be doing the procedure.
[2020-04-04] MEDS: VITAMIN B COMPLEX 1 CAPSULE 1 CAP PO (09:17)
[2020-04-04] MEDS: PANTOPRAZOLE 40 MG VIAL IV ×2 (09:17→20:12)
[2020-04-04] MEDS: HYDRALAZINE 25 MG TABLET PO ×2 (09:17→20:23)
[2020-04-04] MEDS: ESCITALOPRAM 10 MG TABLET 20 MG PO (09:17)
[2020-04-04] MEDS: ATORVASTATIN 20 MG TABLET 80 MG PO (09:17)
[2020-04-04] MEDS: GABAPENTIN 300 MG CAPSULE PO ×2 (09:17→20:11)
[2020-04-04] MEDS: lisinopriL 20 MG TABLET PO (09:18)
[2020-04-04] MEDS: METOPROLOL ER 50 MG TABLET 100 MG PO (09:18)
[2020-04-04] MEDS: CHLORTHALIDONE 25 MG TABLET PO (09:24)
[2020-04-04] MEDS: OXYCODONE IR 5 MG TABLET PO ×2 (09:26→20:10)
--- NOTE | 2020-04-04 12:41 | PM.OP.ENDO ---
Operative Date/Time/Diagnoses Date of procedure: 04/04/20 Time of procedure: 12:41 Pre-op diagnosis: Recurrent upper GI Post-op diagnosis: other (Multiple get ulcers with scant bleeding) Procedure & Clinicians Study performed: Esophagogastroduodenoscopy Biopsies of duodenum, stomach, distal esophagus Injection for bleeding ulcer with blanching and hemostasis Same procedure as scheduled: Yes Indications: Recurrent upper GI bleed, peptic ulcer Surgeon: Lakeshia Nielson Procedure Notes SCOAP/Timeout: Performed Procedure in detail: The patient was brought to the room and placed in left lateral decubitus position with all bony prominences padded. The patient was placed under anesthesia by the anesthesiologist. A bite block was positioned in the patient's mouth to protect the lips, teeth, and tongue for the procedure. Once adequately sedated, the procedure was begun. The lubricated gastroscope was passed through the bite block and across the tongue and into the esophagus without incident. A tubular view of the esophagus was maintained as the scope was advanced through the esophagus and into the stomach. The scope was advanced through the stomach and to the pylorus. The scope was gently popped through the pylorus and into the duodenal bulb. The scope was flexed and advanced into the second and third portions of the duodenum. There was an area of ulceration in scarring with mild bleeding between the duodenal bulb and the 2nd part of the duodenum. This area was biopsied, and injected with 2 cc of [id number] epi, 1 cc on either side of the ulcer, with good hemostasis blanching of the tissue. The scope was withdrawn into the stomach. There were 2 shallow pre-pyloric ulcers which were slowly bleeding. These were injected with [id number] epi x3 cc in 3 locations around the bleed, with good blanching of the tissue and hemostasis. The scope was retroflexed and the gastric cardia was examined. There was another ulcer in the fundus, near the hiatus. It was not actively bleeding. 1 cc of epi was injected beneath the ulcer, with good blanching. There was a Hill grade 3-4 hiatal hernia. The scope was then straightened, and withdrawn into the esophagus. The Z-line was broken with 1 cm of salmon-colored mucosa coming up into the esophagus. Biopsies were taken in the stomach and distal esophagus.. The scope was then withdrawn through the esophagus with a tubular view. The scope was then withdrawn from the patient the procedure was concluded. The patient was extubated and transferred to the PACU in stable condition. Findings: Valdez's esophagus, duodenal ulcer and gastric ulcer Specimen(s): other (Biopsies of duodenum, stomach, distal esophagus) Post-procedure Recommendations: Other recommendation (If rebleeds, I recommend bleeding scan and evaluation of the small intestine. The patient also is overdue for colonoscopy. Follow-up on biopsies, and treat for H pylori as appropriate.) Follow up: as needed Disposition: PACU
[2020-04-04] MEDS: EPINEPHrine 1 MG/10 ML SYRINGE IV (16:01)
--- NOTE | 2020-04-04 16:45 | P.PN_ITS ---
Subjective Subjective Date Patient Seen: 04/04/20 Interval history: Patient is a 80-year-old female who was admitted to the hospital for symptomatic anemia secondary to an upper GI bleed. She has had no further hematemesis. Patient underwent an upper endoscopy today which confirmed an ulcer which was injected with excellent hemostasis. Patient does report some pain. She is somewhat sleepy after her upper endoscopy Exam Vital Signs (past 8 hours): - 04/04/20 09:17 04/04/20 09:18 04/04/20 10:23 Temperature Pulse Rate 65 65 58 L Respiratory Rate Blood Pressure 141/67 H 141/67 H 108/56 L Pulse Oximetry 04/04/20 10:24 04/04/20 10:51 04/04/20 11:19 Temperature 99.3 F Pulse Rate 58 L 66 59 L Respiratory Rate 12 Blood Pressure 108/56 L 140/65 134/66 Pulse Oximetry 98 04/04/20 12:46 04/04/20 12:51 04/04/20 12:55 Temperature 99.4 F Pulse Rate 61 55 L 63 Respiratory Rate 17 18 18 Blood Pressure 181/74 H 174/61 H 174/66 H Pulse Oximetry 98 98 97 04/04/20 13:01 04/04/20 13:05 04/04/20 13:11 Temperature Pulse Rate 58 L 57 L 70 Respiratory Rate 21 20 17 Blood Pressure 162/77 H 171/64 H 169/70 H Pulse Oximetry 95 95 97 04/04/20 13:15 04/04/20 13:46 04/04/20 14:15 Temperature 98.1 F Pulse Rate 59 L 59 L 58 L Respiratory Rate 17 16 16 Blood Pressure 171/61 H 148/63 H 150/69 H Pulse Oximetry 97 94 90 L 04/04/20 14:45 04/04/20 15:45 Temperature 97.4 F L 97.3 F L Pulse Rate 60 61 Respiratory Rate 16 16 Blood Pressure 142/61 H 144/94 H Pulse Oximetry 92 95 Oxygen Delivery Method Room Air Oxygen Flow Rate 0 Narrative Exam Narrative: Elderly female lying in bed lungs: Clear to auscultation Cardiac exam: Regular rate and rhythm, normal S1-S2, 3/6 blowing systolic ejection murmur Abdomen: Soft and nontender Extremities: No edema Objective Labs Result Diagrams: 04/04/20 03:02 04/04/20 03:02 Labs: Laboratory Results - last 24 hr 04/03/20 04/03/20 04/03/20 17:45 17:45 17:45 WBC 7.3 RBC 2.06 L Hgb 6.3 L* Hct 19.3 L* MCV 93.7 MCH 30.4 MCHC 32.4 RDW 16.9 H Plt Count 329 Neut % (Auto) 79.5 H Lymph % (Auto) 13.8 L [place] % (Auto) 4.4 Eos % (Auto) 1.8 L Baso % (Auto) 0.5 Neut # (Auto) 5800 Lymph # (Auto) 1000 L [place] # (Auto) 300 Eos # (Auto) 100 Baso # (Auto) 0 PT 10.2 INR 0.9 APTT 29 Sodium 137 Potassium 4.3 Chloride 112 H Carbon Dioxide 22 BUN 22 H Creatinine 1.07 H Estimated GFR 49.6 L BUN/Creatinine Ratio 20.6 Glucose 94 Calcium 8.8 Magnesium Total Bilirubin 0.1 L AST 16 ALT 8 Alkaline Phosphatase 77 Total Creatine Kinase CK-MB (CK-2) CK-MB (CK-2) Rel Index Troponin I Total Protein 5.6 L Albumin 3.3 L Globulin 2.3 Albumin/Globulin Ratio 1.4 Urine Color Urine Appearance Urine pH Ur Specific [place] Urine Protein Urine Glucose (UA) Urine Ketones Urine Occult Blood Urine Nitrate Urine Bilirubin Urine Urobilinogen Ur Leukocyte Esterase Urine RBC Urine WBC Ur Squamous Epith Cells Urine Bacteria Ur Culture Indicated? SARS-CoV-2 (PCR) Blood Type Antibody Screen Crossmatch 04/03/20 04/03/20 04/03/20 17:45 18:04 18:04 WBC RBC Hgb Hct MCV MCH MCHC RDW Plt Count Neut % (Auto) Lymph % (Auto) [place] % (Auto) Eos % (Auto) Baso % (Auto) Neut # (Auto) Lymph # (Auto) [place] # (Auto) Eos # (Auto) Baso # (Auto) PT INR APTT Sodium Potassium Chloride Carbon Dioxide BUN Creatinine Estimated GFR BUN/Creatinine Ratio Glucose Calcium Magnesium 2.0 Total Bilirubin AST ALT Alkaline Phosphatase Total Creatine Kinase 69 CK-MB (CK-2) TNP CK-MB (CK-2) Rel Index TNP Troponin I < 0.012 Total Protein Albumin Globulin Albumin/Globulin Ratio Urine Color Urine Appearance Urine pH Ur Specific [place] Urine Protein Urine Glucose (UA) Urine Ketones Urine Occult Blood Urine Nitrate Urine Bilirubin Urine Urobilinogen Ur Leukocyte Esterase Urine RBC Urine WBC Ur Squamous Epith Cells Urine Bacteria Ur Culture Indicated? SARS-CoV-2 (PCR) Blood Type O Positive Antibody Screen Negative Crossmatch See Detail 04/03/20 04/04/20 04/04/20 18:30 03:02 03:02 WBC 5.4 RBC 2.80 L Hgb 8.3 L Hct 25.8 L MCV 92.1 MCH 29.6 MCHC 32.2 RDW 16.7 H Plt Count 257 Neut % (Auto) 67.0 Lymph % (Auto) 22.8 L [place] % (Auto) 6.7 Eos % (Auto) 3.0 Baso % (Auto) 0.5 Neut # (Auto) 3600 Lymph # (Auto) 1200 [place] # (Auto) 400 Eos # (Auto) 200 Baso # (Auto) 0 PT INR APTT Sodium 136 L Potassium 4.3 Chloride 111 H Carbon Dioxide 24 BUN 20 H Creatinine 0.95 Estimated GFR 56.9 L BUN/Creatinine Ratio 21.1 Glucose 82 Calcium 8.6 Magnesium Total Bilirubin AST ALT Alkaline Phosphatase Total Creatine Kinase CK-MB (CK-2) CK-MB (CK-2) Rel Index Troponin I Total Protein Albumin Globulin Albumin/Globulin Ratio Urine Color Urine Appearance Urine pH Ur Specific [place] Urine Protein Urine Glucose (UA) Urine Ketones Urine Occult Blood Urine Nitrate Urine Bilirubin Urine Urobilinogen Ur Leukocyte Esterase Urine RBC Urine WBC Ur Squamous Epith Cells Urine Bacteria Ur Culture Indicated? SARS-CoV-2 (PCR) Negative Blood Type Antibody Screen Crossmatch 04/04/20 04:30 WBC RBC Hgb Hct MCV MCH MCHC RDW Plt Count Neut % (Auto) Lymph % (Auto) [place] % (Auto) Eos % (Auto) Baso % (Auto) Neut # (Auto) Lymph # (Auto) [place] # (Auto) Eos # (Auto) Baso # (Auto) PT INR APTT Sodium Potassium Chloride Carbon Dioxide BUN Creatinine Estimated GFR BUN/Creatinine Ratio Glucose Calcium Magnesium Total Bilirubin AST ALT Alkaline Phosphatase Total Creatine Kinase CK-MB (CK-2) CK-MB (CK-2) Rel Index Troponin I Total Protein Albumin Globulin Albumin/Globulin Ratio Urine Color Yellow Urine Appearance Clear Urine pH 5.0 Ur Specific [place] 1.020 Urine Protein Negative Urine Glucose (UA) Negative Urine Ketones Negative Urine Occult Blood Negative Urine Nitrate Negative Urine Bilirubin Negative Urine Urobilinogen 0.2 Ur Leukocyte Esterase Negative Urine RBC None seen Urine WBC 0-1/hpf Ur Squamous Epith Cells 1-5 /hpf Urine Bacteria Occasional (0-1) Ur Culture Indicated? Cult not indicated SARS-CoV-2 (PCR) Blood Type Antibody Screen Crossmatch [facility] Medical History ADD (attention deficit disorder) Anxiety and depression COPD (chronic obstructive pulmonary disease) CVA (cerebral vascular accident) Hyperlipidemia Hypertension Myocardial infarction Neoplasm of rib NSAID-induced gastric ulcer Osteoarthritis Spinal stenosis at L4-L5 level Surgical History (Updated 04/04/20 @ 09:04 by Inderjit Benedict MD) History of angioplasty History of colostomy reversal History of hip surgery History of hysterectomy with oophorectomy Hx of cholecystectomy Status post partial colectomy Social History household members: family Smoking Status: Current every day smoker alcohol intake: never Assessment & Plan Assessment & Plan narrative: Impression 1. Upper GI bleed secondary to ulcer -upper endoscopy revealed an ulcer near the duodenum which was ejected and hemostasis was obtained -Will rate H pylori and continue PPI 2. Acute blood loss anemia -HEMOGLOBIN HEMATOCRIT 8.3/25 AFTER TRANSFUSION 3. Hypertension -continue amlodipine, lisinopril, and metoprolol 4. Hyperlipidemia -continue statin 5. COPD -continue inhalers Anticipate discharge home tomorrow Quality VTE Deep Vein Thrombosis/Pulmonary Embolism Present on Admission: No
--- NOTE | 2020-04-04 17:27 | DIET.PN ---
Dietary Progress Note 80y F admitted for recurrent upper GIB referred to nutrition for low BMI 20.4. Pt reports to provider black BMs for past several weeks and hgb on admit 6.3. Pt underwent endoscopy this afternoon finding two small, slow bleeding pre-pyloric ulcers. Per MNA in Admit Assessment, pt reports loss of 3-6kg over the past 3mo without associated decrease in appetite. Pt Vitamin D 22.2 L, B12 >1,000 H Pt has hx of colon cancer c ostomy from the 1970s with no recent colonoscopy. Pt not back to room before RD could visit, will try when back in office 04/07. [facility] nursing offer pt ONS to support POs if POs <75%
[2020-04-05] MEDS: OXYCODONE IR 5 MG TABLET PO (00:27)
[2020-04-05] MEDS: SODIUM CHLORIDE 0.9% FLUSH 10 ML IV ×3 (00:27→08:45)
[2020-04-05] MEDS: ONDANSETRON 4 MG/2 ML INJ IV ×3 (00:27→11:53)
[2020-04-05] MEDS: MELATONIN 3 MG TABLET 6 MG PO (00:27)
[2020-04-05 03:56] VITALS: BP 99/55; PULSE 52; RESP 14; TEMP 36.8; O2SAT 98
[2020-04-05] MEDS: OXYCODONE IR 10 MG TABLET PO ×2 (04:42→11:53)
[2020-04-05 05:50] LABS: Add Manual Diff / Slide Review NO; Basophils Absolute Auto 0 /uL (0-100); Basophils Percent Auto 0.6 % (0-2); Eosinophils Absolute Auto 200 /uL (0-450); Eosinophils Percent Auto 2.9 % (2-4); Hematocrit 25.5 % (36-46); Hemoglobin 8.3 g/dL (12.0-16.0); Lymphocytes Absolute Auto 1400 /uL (1100-4500); Lymphocytes Percent Auto 21.3 % (25-40); Mean Corpuscular HGB Conc 32.7 % (30-36); Mean Corpuscular Volume 91.7 fL (80-100); Monocytes Absolute Auto 500 /uL (0-900); Monocytes Percent Auto 6.7 % (3-14); Neutrophils Absolute Auto 4600 /uL (1500-7000); Neutrophils Percent Auto 68.5 % (50-75); Platelet Count 274 X10^3/uL (150-400); Red Blood Cell Count 2.78 X10^6/uL (4.0-5.2); Red Cell Distribution Width 16.8 % (11.6-14.8); White Blood Cell Count 6.7 X10^3/uL (4.5-11.0)
[2020-04-05 05:56] LABS: Blood Urea Nitrogen 17 mg/dL (7-17); Calcium 8.6 mg/dL (8.4-10.2); Carbon Dioxide 23 mmol/L (22-32); Chloride 108 mmol/L (98-107); Estimated Glomerular Filt Rate 53.6 mL/min (>60); Glucose 86 mg/dL (80-110); HEMOLYSIS < 15 (0-50); Magnesium 1.7 mg/dL (1.6-2.3); Sodium 133 mmol/L (137-145)
[2020-04-05 06:07] LABS: Potassium 5.6 mmol/L (3.4-5.1)
--- NOTE | 2020-04-05 06:59 | PC.NURSE ---
Tool Dispatcher Note-Patient is A/Ox4, no s/s bleeding, emesis, or stools. Scheduled IV Zofran given, oxycodone prn for abdominal cramping and neck pain. SB/SR, VSS.
[2020-04-05 08:00] VITALS: BP 100/56; PULSE 53; RESP 17; TEMP 37.2; O2SAT 97
[2020-04-05 08:34] VITALS: PULSE 54; RESP 16; O2SAT 97
[2020-04-05] MEDS: TIOTROPIUM BROMIDE 18 MCG INHALER INH (08:40)
[2020-04-05] MEDS: ATORVASTATIN 20 MG TABLET 80 MG PO (08:44)
[2020-04-05] MEDS: ESCITALOPRAM 10 MG TABLET 20 MG PO (08:44)
[2020-04-05] MEDS: VITAMIN B COMPLEX 1 CAPSULE 1 CAP PO (08:44)
[2020-04-05] MEDS: GABAPENTIN 300 MG CAPSULE PO (08:44)
[2020-04-05] MEDS: PANTOPRAZOLE 40 MG VIAL IV (08:45)
--- NOTE | 2020-04-05 09:58 | PM.DS.1 ---
History of Present Illness History of Present Illness Date Patient Seen: 04/05/20 Chief complaint: GI Bleed Narrative: Ms. Arlyn Rangel is a 80-year-old female with a past medical history significant for hypertension, hyperlipidemia, history of myocardial infarction (see 1982, S/P angioplasty), CVA, COPD, L4-5 spinal stenosis, anxiety and depression who presents to the ER via EMS with weakness and lightheadedness. The patient was admitted at [facility] following a syncopal episode where she was found to be anemic with a GI bleed and melena. She was transfused 2 units of blood and underwent endoscopy and treated for bleeding ulcer. The patient reports she was found to have an NSAID induced gastric ulcer. The patient was discharged 1 week ago today and on follow-up labs was found disc continued to be anemic with a hemoglobin of 6 and hematocrit of 20. Patient continues to endorse nausea with occasional vomiting without hematemesis. She continues to pass melanotic stools since the onset of her symptoms approximately 2 weeks ago. The patient has previously experience cramping abdominal pain but none at this time. The patient denies complaints of recent flu or cold symptoms, fevers or chills and no known COVID-19 exposures. She does complain of a left occipital headache, she reports no lateralizing symptoms numbness or tingling, no changes in gait, balance or visual changes. She reports no complaints of chest pain with a history of previous heart attack and has had no palpitations. The patient denies shortness of breath however continues to smoke daily and reports occasional wheezing using Spiriva and albuterol as home medications. She has a frequent cough which she relates to sinus drainage in the back of throat. Upon arrival to the ER the patient has a temperature 97.0?, heart rate 78, blood pressure 150/68, respirations 16 saturating 97% on room air. No imaging was obtained, EKG reveals sinus rhythm at a rate of 72 without ectopy, no block, ST or T-wave changes or pathological Q-waves. On laboratory analysis the patient has white count 7.3, hemoglobin of 6.3, hematocrit of 19.3 and platelets of 329. Her PT is 10.9 with an INR 0.9 and a PTT of 29. Her electrolytes are within normal range however chloride is elevated at 112. She has a BUN of 22 and a creatinine of 1.07. Her EGFR is 49.6. Her nonfasting glucose is 94 and her liver functions are all within normal range. Her COVID-[address] Benedict general surgery is contacted through the ER and agrees to consult with plans to perform endoscopy tomorrow. The patient received Protonix 40 mg IV in the ER. She is admitted to the hospitalist service for recurrent versus persistent GI bleeding. Discharge Providers Provider Date of admission: 04/03/20 19:10 Discharge Date: 04/05/20 Primary care physician: Krystyna Maldonado MD Consults: 04/03/20 19:55 Consult to Dietitian, Adult Routine Comment: Reason For Exam: Recurrent upper GI bleed Consult to Discharge Planning Routine Comment: 04/03/20 20:45 Consult to Respiratory Therapy Evaluate & Treat Comment: COPD Physician Instructions: Evaluate and treat 04/03/20 20:46 Consult to Dietitian, Adult Routine Comment: Reason For Exam: Recurrent GI bleed, BMI 20.4 Consult to Respiratory Therapy Routine Comment: Physician Instructions: Evaluate and treat Discharge provider: Aminata Richter MD Summary Hospital Course Discharge Diagnosis: 1. Upper GI bleed 2. Acute blood loss anemia 3. Status post upper endoscopy, treated with injection sclerotherapy for duodenal ulcer 4. Tobacco dependence 5. Hyperlipidemia 6. Headache 7. Anxiety and depression 8. Hypertension Hospital Course: Patient was admitted to the hospital for upper GI bleed. She was given 2 units of packed RBCs, her hemoglobin improved from 6-8 g. the patient did have an episode of melanotic stool at the time of admission. She was seen in consultation by General surgery. Patient had an upper endoscopy which revealed the following findings: There was an area of ulceration in scarring with mild bleeding between the duodenal bulb and the 2nd part of the duodenum. This area was biopsied, and injected with 2 cc of 1:17222 epi, 1 cc on either side of the ulcer, with good hemostasis blanching of the tissue. Patient's repeat hemoglobin and hematocrit was stable hemoglobin 8.3 hematocrit 25. Patient had no further bleeding episodes. She did have some mid epigastric pain which was treated with pain medication. Overall she was deemed to be appropriate back to baseline and deemed appropriate for discharge. Per the note from General surgery should the patient develop recurrent bleeding would suggest bleeding scan to identify episode and source of bleeding. In addition given her recurrent bleeding will transition her from Dexilant to Protonix 40 b.i.d.. Patient was discharged home in satisfactory condition Status at Discharge Cognitive/behavioral status at discharge: oriented Functional status at discharge: independent ambulation Overall status at discharge: patient is back to baseline Exam Vital Signs (past 8 hours): - 04/05/20 03:56 04/05/20 08:00 04/05/20 08:34 Temperature 98.2 F 98.9 F Pulse Rate 52 L 53 L 54 L Respiratory Rate 14 17 16 Blood Pressure 99/55 L 100/56 L Pulse Oximetry 98 97 97 Oxygen Delivery Method Room Air Oxygen Flow Rate 0 Narrative Exam Narrative: Pleasant elderly female in no obviously distressed Lungs: Decreased breath sounds with occasional scattered rhonchi Cardiac exam: Regular rate and rhythm normal S1-S2 with a 2/6 systolic ejection murmur Abdomen soft mildly tender in the midepigastrium. No rebound tenderness. No board-like rigidity Extremities: No edema Objective Labs Result Diagrams: 04/05/20 05:30 04/05/20 05:30 Labs: Laboratory Results - last 24 hr 04/05/20 04/05/20 05:30 05:30 WBC 6.7 RBC 2.78 L Hgb 8.3 L Hct 25.5 L MCV 91.7 MCH 30.0 MCHC 32.7 RDW 16.8 H Plt Count 274 Neut % (Auto) 68.5 Lymph % (Auto) 21.3 L [place] % (Auto) 6.7 Eos % (Auto) 2.9 Baso % (Auto) 0.6 Neut # (Auto) 4600 Lymph # (Auto) 1400 [place] # (Auto) 500 Eos # (Auto) 200 Baso # (Auto) 0 Sodium 133 L Potassium 5.6 H D Chloride 108 H Carbon Dioxide 23 BUN 17 Creatinine 1.00 Estimated GFR 53.6 L BUN/Creatinine Ratio 17.0 Glucose 86 Calcium 8.6 Magnesium 1.7 [facility] Medical History ADD (attention deficit disorder) Anxiety and depression COPD (chronic obstructive pulmonary disease) CVA (cerebral vascular accident) Hyperlipidemia Hypertension Myocardial infarction Neoplasm of rib NSAID-induced gastric ulcer Osteoarthritis Spinal stenosis at L4-L5 level Surgical History (Updated 04/04/20 @ 09:04 by Inderjit Benedict MD) History of angioplasty History of colostomy reversal History of hip surgery History of hysterectomy with oophorectomy Hx of cholecystectomy Status post partial colectomy Social History household members: family Smoking Status: Current every day smoker alcohol intake: never Discharge Assessment & Plan Assessment and Plan Assessment: 1. Upper GI bleed 2. Acute blood loss anemia 3. Status post endoscopy with injection sclerotherapy to the duodenal area were bleeding occurred 4. Anxiety Plan of Treatment: Discharge home on medications as prescribed Follow-up with PCP For recurrent bleeding patient will need a bleeding scan Discharge Plan Discharge Plan Patient Disposition: Home Discharge orders & Medications Prescriptions: New pantoprazole [Protonix] 40 mg tablet,delayed release (DR/EC) 40 mg PO BID Qty: 60 RF: 0 Continued Spiriva with HandiHaler 18 MCG capsule, w/inhalation device 18 mcg inhalation 0600 Qty: 0 RF: 0 amlodipine [Norvasc] 5 MG tablet 5 mg PO QDAY Qty: 30 RF: 0 atorvastatin 40 mg Tablet 80 mg PO DAILY RF: 0 sennosides [senna] 8.6 mg Tablet 8.6 mg PO BEDTIME PRN (Reason: Constipation) RF: 0 acetaminophen 325 mg Tablet 325 mg PO Q6HR PRN (Reason: Pain (Scale Score 1-3)) RF: 0 ipratropium-albuterol [DuoNeb] 0.5 mg-3 mg(2.5 mg base)/3 mL Solution For Nebulization 3 ml INHALATION QID RF: 0 polyethylene glycol 3350 17 gram Powder In Packet 17 g PO DAILY PRN (Reason: Constipation) RF: 0 sucralfate 1 gram tablet 1 g PO BID RF: 0 metoprolol succinate 100 mg Tablet Extended Release 24 Hr 100 mg PO DAILY RF: 0 hydralazine 25 mg tablet 25 mg PO TID RF: 0 chlorthalidone 25 mg Tablet 25 mg PO DAILY RF: 0 hydrocodone-acetaminophen 10-325 mg Tablet 1 tab PO Q6H PRN (Reason: Pain (Scale Score 4-6)) RF: 0 [id number]-[id number]-[id number] [Fioricet] 50-325-40 mg Tablet 1 tab PO 2XW MDD 2 RF: 0 alprazolam 0.25 mg tablet 0.125 - 0.25 mg PO DAILY RF: 0 nitroglycerin 0.4 mg tablet, sublingual 0.4 mg sublingual [id number] PRN (Reason: Chest Pain) RF: 0 gabapentin 300 mg capsule 300 mg PO TID RF: 0 ondansetron 4 mg tablet,disintegrating 4 mg PO TID PRN (Reason: Nausea) RF: 0 Flovent HFA 110 mcg/actuation Hfa Aerosol Inhaler 1 puff INHALATION BID RF: 0 metoclopramide HCl 10 mg tablet 10 mg PO ACHS RF: 0 escitalopram oxalate 20 mg Tablet 20 mg PO DAILY RF: 0 lisinopril 20 mg Tablet 20 mg PO DAILY RF: 0 vitamin B complex [B Complex-Vitamin B12] Tablet 1 tab PO DAILY RF: 0 Discontinued Dexilant 60 MG capsule,biphase delayed releas 60 mg PO QDAY Qty: 30 RF: 0 Dexilant 60 mg capsule,biphase delayed releas 60 mg PO BID RF: 0 Follow up/Referrals: Krystyna Maldonado MD [Primary Care Provider] - Discharge Health Status Multidrug resistant organism: No MDRO Diet/Activity/Treatments Diet: Low-sodium and Low-cholesterol Discharge Data Primary Care Provider: Krystyna Maldonado Quality VTE Deep Vein Thrombosis/Pulmonary Embolism Present on Admission: No
--- NOTE | 2020-04-05 10:20 | CM.DANOTE ---
DCP: Case received, EMR reviewed and met with patient. Introduced self and role. Was able to obtain information from patient regarding her baseline activity status prior to hospitalization, as well as her current living situation. DCP assessment completed with information currently available. Patient is a 80 year old female who admitted on 04/03 in the early evening, to the care of the hospitalist team. PCP: Dr. Krystyna Maldonado. Payer: confirmed: Medicare/Medicaid. Patient came to the hospital via ambulance secondary to increased weakness, and passing melanotic stools. Patient was diagnosed with GI Bleed. She dodd recently gone to [facility] for a syncopal episode, and diagnosed with anemia. She has received transfusion, and EGD. Patient came back to this hospital due to weakness, and stools. She was noted to have some ulcers. Met with patient in her room. She is pleasant, alert and oriented, sitting up in bed. Confirmed that she resides in [place] with her daughter, Jamila, who works at this hospital in respiratory therapy. Patient indicated that she no longer drives, uses a cane or walker for home use. She has lived in [place] since 2006, and is originally from [place]. P: Patient is to be discharged home today with no needs. Daughter will pick her up. Naomy Almeida RN/Collections Attorney
[2020-04-05 12:00] VITALS: BP 114/59; PULSE 52; RESP 18; TEMP 36.9; O2SAT 97
--- NOTE | 2020-04-05 14:57 | PC.NURSE ---
Addendum entered by Juan Jose Mayberry R.N. 04/05/20 15:37: Patient without further questions or concerns, escorted out via wheelchair with all belongings to home with her family. Original Note: Discharge handouts, prescriptions and discharge instructions reviewed with patient and she has no further questions or concerns, and states understanding. IV's dc'd intact. Patient dressing and resting comfortably in bed, waiting for her grandson to pick her up. Patient to follow up with her PCP Dr. Maldonado this week as scheduled. Patient instructed to call Tuesday to confirm/schedule.
[2020-04-08 13:15] LABS: H. Pylori Antigen Stool Negative (Negative)
== END 2020-04-05 15:38 | disposition home or self-care (01) | DRG 378 ==
LOC: ED 18:55 → AC 23:04
PROVIDERS: Internal Medicine; Surgery; Admitting Provider Nurse Practitioner Adult Health; Emergency Provider Emergency Medicine; PCP Internal Medicine; Referring Provider Emergency Medicine; Visit Provider Nurse Practitioner Adult Health
PROC: 0DJ08ZZ Inspection of Upper Intestinal Tract, Via Natural or Artificial Opening Endoscopic (ICD-10-PCS; CPT 43235; principal; 2020-04-04 11:30)
DX: K26.4 Chronic or unspecified duodenal ulcer with hemorrhage (principal); D62 Acute posthemorrhagic anemia; K25.4 Chronic or unspecified gastric ulcer with hemorrhage; I10 Essential (primary) hypertension; E78.5 Hyperlipidemia, unspecified; J44.9 Chronic obstructive pulmonary disease, unspecified; F41.9 Anxiety disorder, unspecified; F32.9 Major depressive disorder, single episode, unspecified; I69.392 Facial weakness following cerebral infarction; R51.9 Headache, unspecified; F17.210 Nicotine dependence, cigarettes, uncomplicated; Z20.822 Contact with and (suspected) exposure to COVID-19; E53.8 Deficiency of other specified B group vitamins
CPT/HCPCS: 36415; 36430; 80048; 80053; 81001; 82272; 82550; 82607; 82728; 83540; 83550; 83735; 84484; 85025; 85610; 85730; 86850; 86900; 86901; 87338; 87635; 93005; 94640; 94762; 96374; 96375; 99282; 99284; C9803; P9016; A9270; C9113; J0171; J2405; J2765

== ENCOUNTER → 2020-04-18 19:26 | Outpatient (ROUT) | payer MEDICARE, SELFPAY ==
[2020-04-03 19:16] VITALS: BMI 20.4
[2020-04-18 19:32] LABS: Add Manual Diff / Slide Review NO; Basophils Absolute Auto 0 /uL (0-100); Basophils Percent Auto 0.1 % (0-2); Eosinophils Absolute Auto 0 /uL (0-450); Hematocrit 30.1 % (36-46); Hemoglobin 9.4 g/dL (12.0-16.0); Lymphocytes Absolute Auto 500 /uL (1100-4500); Lymphocytes Percent Auto 4.7 % (25-40); Mean Corpuscular HGB Conc 31.4 % (30-36); Mean Corpuscular Hemoglobin 28.4 PG (26-34); Mean Corpuscular Volume 90.4 fL (80-100); Monocytes Absolute Auto 300 /uL (0-900); Monocytes Percent Auto 2.9 % (3-14); Neutrophils Absolute Auto 9300 /uL (1500-7000); Neutrophils Percent Auto 92.3 % (50-75); Platelet Count 271 X10^3/uL (150-400); Red Blood Cell Count 3.33 X10^6/uL (4.0-5.2); Red Cell Distribution Width 16.1 % (11.6-14.8); White Blood Cell Count 10.1 X10^3/uL (4.5-11.0)
== END ==
PROVIDERS: PCP Internal Medicine; Visit Provider Internal Medicine
DX: D50.0 Iron deficiency anemia secondary to blood loss (chronic) (principal)
CPT/HCPCS: 85025